=== PATIENT | female | born 1960 | race Hispanic/Latino ===

== ENCOUNTER 2016-10-21 15:28 | Emergency (ER) | payer OTHER ==
[~2016-10-21] VITALS: Ht 162.6 cm; Wt 80.0 kg
[~2016-10-21 15:28] MED LIST: ASPI81TA2 PO; FLUT9.9S NS; INS7030U SUBQ; INSU100V2 SUBQ; LISI1TAB3 PO; MECL-114 PO; METF1000 PO; METH750T3 PO; OMEP20TA86 PO; SYN.15T2 PO; ZOC10 PO
[2016-10-21 15:29] VITALS: BP 138/79; PULSE 85; RESP 20; O2SAT 97
--- NOTE | 2016-10-21 16:04 | ED.REPORT ---
HPI-Extremity Problem Upper Date of Service Oct 21, 2016 ED Provider: Inocencio Andersen MD This is a 56-year-old female who presents to the ED for left wrist pain. This occurred at work while she was lifting a mattress and she heard a pop in her wrist. She did not experience sudden pain at that point and continued to work and slowly noticed that her watch was getting tighter and she started experiencing more pain in her wrist. Currently her wrist pain is sharp, 7 out of 10. It is radiating from her wrist to her left lateral elbow. She tried ibuprofen 800 mg without relief. She notes that she is having some numbness in her fingertips as well as weakness of her wrists and swelling. She currently has ice on it which is helping her pain. She has decreased range of motion of her wrists due to pain, worse with flexion. Nursing Notes Stated Complaint: LEFT WRIST Chief Complaint: Extremity Trauma Nursing Notes Reviewed: Yes Allergies: Coded Allergies: naproxen (Verified Allergy, Mild, 10/21/16) BLISTERS Scheduled Aspirin-Expunged Drug, Do Not Renew! (Aspirin-Expunged Drug, Do Not Renew!) 81 Mg Tab 81 MG PO DAILY Fluticasone Propionate (Flonase Allergy Relief) 50 Mcg/Actuation [place].susp 9.9 ML NS BID Insul NPH/REG-Expunged Drug, Do Not Renew! (Novolin 24-72-[facility], Do Not Renew!) 10 Ml Vial 15 SUBQ AM Insul NPH/REG-Expunged Drug, Do Not Renew! (Novolin 49-89-[place] [facility], Do Not Renew!) 10 Ml Vial 10 SUBQ 1900 Insulin Glulisine (Apidra U100 Insulin Vial) 100 Unit/1 Ml Vial 1 UNIT SUBQ TID- INSULIN Levothyroxine-Expunged Drug, Do Not Renew! (Synthroid-Expunged Drug, Do Not Renew!) 150 Mcg Tablet 200 MCG PO DAILYAC 0.15 MG = 150 MCG Lisin/HCTZ-Expunged, Do Not Renew! (Lisin/HCTZ 10/12.5-Expunged, Do Not Renew!) 1 Tab Tablet 1 TAB PO DAILY Meclizine (Bonine) 25 Mg Tab.chew 25 MG PO TID Metformin-Expunged Drug, Do Not Renew! (Metformin-Expunged Drug, Do Not Renew!) 1,000 Mg Tablet 850 MG PO BID Omeprazole (Omeprazole) 20 Mg Tablet.dr 20 MG PO BID Scheduled PRN Methocarbamol (Methocarbamol) 750 Mg Tablet 750 MG PO QID PRN PRN For Spasm Miscellaneous Medications Simvastatin-Expunged Drug, Choose New Med! 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 Physical Exam Initial Vital Signs Vital Signs (First) Date Time Temp Pulse Resp B/P Pulse Ox O2 Delivery O2 Flow Rate FiO2 10/21/16 15:29 36.7 85 20 138/79 97 Room Air Initial VS: Reviewed General/Constitutional: Well-developed, Well-nourished Head / Eyes: Atraumatic, Normocephalic Upper Extremity / MS: No erythema, Vascular intact Right Elbow: Positive: Tender radial head... (Mild) Wrist / Hand: Vascular intact Left Wrist: Positive: Swelling present... (Mild), Tender snuffbox... (Mild), Tenderness present... (Mild) Neurologic: Oriented X3 Find sensation decreased on dorsal aspect of left hand. Otherwise no other numbness noted. 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 Interpretation & Diagnostics PROCEDURE: X-RAY LEFT WRIST COMPLETE, MINIMUM THREE VIEWS ([id number]) IMPRESSION: No acute fractures or dislocations. Re-Eval/Medical Decision Med Decision/Clinical Course This 56-year-old female who presented with left wrist pain after lifting a mattress and hearing a popping sensation. Her examination did show some mild swelling however nerves are intact. X-ray of the wrist did not show any acute fractures or dislocation. Splint to left wrist applied. Instructed patient to ice and use ibuprofen as needed. Differential Diagnosis: Negative: Abscess, Amputation, Arterial occlus/ischemia , Fracture, Gamekeepers thumb, Humerus fracture, Joint effusion, Laceration, Metacarpal fracture Discharge & Departure Impression: Primary Impression: Left wrist pain Disposition: Home Discharge Condition All VS Reviewed: Yes Condition: Stable Patient Instructions: Wrist Injury (ED) Additional Instructions: You may use ibuprofen as needed to help with the pain. You may take up to 600 mg 4 times daily. A splint has been applied while you were here. As you start to feel better you may start to take it off. Try to rest your wrist at this time and avoid heavy lifting with it. Referrals: Isabella Cisneros MD (PCP) Attending Statement this is a patient who was initially seen by the resident, but I personally interviewed and examined the patient and the radiographs. Patient describes a mechanism that is low risk for fx and suspicious for sprain. There is mild tenderness, trace swelling, with decreased ROM, but the hand is neurovascularly intact and there are no findings on Xray. Conservative measures discussed. L&I form completed. Patient DC'd in good condition after routine and return precautions reviewed. Andrea Saunders DO Oct 21, 2016 16:04 Inocencio Andersen MD Oct 21, 2016 17:54
--- NOTE | 2016-10-21 16:39 | DRSVH ---
PROCEDURE: X-RAY LEFT WRIST COMPLETE, MINIMUM THREE VIEWS ([id number]) INDICATIONS: injury, pain TECHNIQUE: 4 views of the wrist were acquired. COMPARISON: None. FINDINGS: Bones: No fractures or dislocations. No suspicious bony lesions. Degenerative changes greatest at the first CMC and STT joints. Scaphoid view: No displaced fractures. Soft tissues: No suspicious soft tissue calcifications. IMPRESSION: No acute fractures or dislocations. Dictated by: Antwan Sanchez M.D. on 10/21/2016 at 16:36 Approved by: Antwan Sanchez M.D. on 10/21/2016 at 16:37
[2016-10-21 17:49] VITALS: BP 125/82; PULSE 75; RESP 18; O2SAT 98
== END 2016-10-21 17:51 | disposition home or self-care (01) ==
LOC: SED 15:28
DX: S63.592A Other specified sprain of left wrist, initial encounter (principal); M25.532 Pain in left wrist; E11.9 Type 2 diabetes mellitus without complications; I10 Essential (primary) hypertension; E03.9 Hypothyroidism, unspecified; Z79.82 Long term (current) use of aspirin; Z79.4 Long term (current) use of insulin; Z79.84 Long term (current) use of oral hypoglycemic drugs; Z88.5 Allergy status to narcotic agent